=== PATIENT | female | born 1990 | race Caucasian/White ===

== ENCOUNTER 2019-03-11 08:42 | Outpatient (CLI) | payer OTHER ==
--- NOTE | 2019-03-11 23:20 | MRI Report ---
Reason: PAIN IN RT KNEE Procedure Date: 03/11/2019 Accession Number: [id number] / [id number] Procedure: MRI - Knee RT W/O CPT Code: Final Report FULL RESULT: EXAM: RIGHT KNEE MRI WITHOUT CONTRAST. EXAM DATE: 03/11/2019 09:34 AM. CLINICAL HISTORY: Pain in right knee. Injury with residual pain. COMPARISON: None. TECHNIQUE: Multiplanar, multisequence T1-weighted and fluid-sensitive sequences of the knee without contrast. Other: None. FINDINGS: Bones: Mild impaction fracture far posterior margin lateral tibial plateau with mild bone marrow edema. Subtle bone marrow edema central aspect lateral femoral condyle at site of focal cartilage loss. Mild contour deformity anterior aspect lateral femoral condyle without bone marrow edema. Mild bone marrow edema posterior aspect medial tibial plateau. Patchy T1 and fluid sensitive isointense signal in the medullary cavities distal femur and proximal tibia and fibula, consistent with residual red marrow. 0.6 cm likely enchondroma at the proximal fibula. Articular Cartilage: 0.5 x 0.4 cm focus of deep partial to full thickness cartilage loss central aspect lateral femoral condyle. Shallow irregularity at the patellofemoral joint with possible subtle fissure/tear medial patellar facet. Medial Meniscus: Diminutive appearance and fluid sensitive hyperintense signal at the posterior root. Lateral Meniscus: Deep radial tear posterior horn and root with triangular shaped flipped fragment extending 1.3 cm into the posterior intercondylar notch. Cruciate Ligaments: Moderate thickening and edema of the anterior cruciate ligament with distortion throughout the majority of the central substance. Some peripheral fibers appear intact. Posterior cruciate ligament intact. Collateral Ligaments: The medial collateral and lateral collateral ligamentous structures are intact. Tendons: The quadriceps, patellar, semimembranosus, and popliteus tendons are unremarkable. Musculature: No fatty atrophy. Minimal edema in the popliteus and soleus muscles. Other: Large joint effusion with synovitis. No popliteal cyst. No loose bodies. The medial and lateral retinacula are intact. Subcutaneous soft tissues and anterior fat-pads unremarkable. IMPRESSION: 1. High-grade partial-thickness tear anterior cruciate ligament. 2. Deep radial tear posterior horn and root lateral meniscus with flipped fragment. 3. Volume averaging artifact versus partial thickness tear posterior root medial meniscus. 4. Mild impaction fractures lateral tibial plateau and to a lesser extent medial tibial plateau. 0.5 cm focus of deep partial to full-thickness cartilage loss at the lateral femoral condyle. 5. Large joint effusion with synovitis. RADIA
== END 2019-03-11 08:43 | disposition home or self-care (01) ==
LOC: DI 08:42
PROVIDERS: ATTEND General Practice
DX: S83.511A Sprain of anterior cruciate ligament of right knee, initial encounter (principal); S83.281A Other tear of lateral meniscus, current injury, right knee, initial encounter; S82.141A Displaced bicondylar fracture of right tibia, initial encounter for closed fracture; M25.461 Effusion, right knee; M65.9 Synovitis and tenosynovitis, unspecified

== ENCOUNTER 2019-04-21 11:05 | Day surgery (SDC) | payer OTHER ==
[2019-04-21] MEDS ORDERED: LACTATED RINGERS 1,000 ML IV ONE (11:12)
[2019-04-21] MEDS ORDERED: CEFAZOLIN SODIUM IN 0.9 % NACL 2 GM/100 ML BAG IV ONE (11:16)
--- NOTE | 2019-04-21 11:17 | ANESTHESIA ---
Pre-Anesthesia VS, & Labs - Diagnosis R ACL tear, medial and lateral meniscus tears - Procedure R AACL reconstruction, possible meniscus root repairs Height 5 ft 3 in Weight (kg) 74.84 kg - NPO >8 hours - Is Patient ?: No - Lab Results Lab results reviewed: Yes Home Medications and Allergies Home Medications: Ambulatory Orders Vitamin B Complex 1 each PO 04/01/19 Vitamin B Complex 1 each PO 04/01/19 Allergies/Adverse Reactions: Allergies Allergy/AdvReac Type Severity Reaction Status Date / Time No Known Drug Allergies Allergy Verified 04/01/19 14:30 Anes History & Medical History - Anesthetic History Anesthesia Complications: reports: No previous complications Family history of Anesthesia Complications: Denies Family history of Malignant Hyperthermia: Denies - Medical History Pulmonary: reports: None Gastrointestinal: reports: None Urinary: reports: None Musculoskeletal: reports: Other Endocrine/Autoimmune: reports: None Skin: reports: None - Surgical History Eyes Ears Nose Throat (EENT): Tonsil/Adenoidectomy Exam General: Alert, Oriented x3, Cooperative Dental: WNL Mouth Openin Fingerbreadth Neck Mobility: Normal Mallampati classification: II Thyromental Distance: 4-6 cm Respiratory: Lungs clear, Normal breath sounds, No respiratory distress Cardiovascular: Regular rate Neurological: Normal speech Mental/Cognitive Status: Alert/Oriented X3, Normal for patient Cognitive Status: Within normal limits Plan Anesthesia Type: General, Femoral Block Regional Block: Per Surgeon's request for Post Op pain control Consent for Procedure(s) Verified and Reviewed: Yes Code Status: Attempt Resuscitation ASA classification: 1-Healthy patient Is this case an emergency?: No
[2019-04-21 11:20] LABS: HCG UR QUAL NEGATIVE
[2019-04-21] MEDS ORDERED: BUPIVACAINE 0.25% PF 30 ML VIAL SUBQ ONE ×2 (11:25)
[2019-04-21] MEDS ORDERED: EPINEPHrine 1 MG/ML AMP IVP ONE (11:25)
[2019-04-21] MEDS ORDERED: LIDOCAINE-MPF 2% 5 ML VIAL IM ONE (11:51)
[2019-04-21] MEDS ORDERED: HYDROmorphone 1 MG/ML CARPUJECT IVP ONE (11:51)
[2019-04-21] MEDS ORDERED: KETOROLAC 30 MG/ML VIAL IVP ONE (11:51)
[2019-04-21] MEDS ORDERED: fentaNYL 100 MCG/2 ML VIAL IVP ONE (11:51)
[2019-04-21] MEDS ORDERED: MIDAZOLAM 2 MG/2 ML VIAL IVP ONE (11:51)
[2019-04-21] MEDS ORDERED: PROPOFOL 200 MG/20 ML VIAL IVP ONE (11:51)
[2019-04-21] MEDS ORDERED: ONDANSETRON 4 MG/2 ML VIAL IVP ONE (11:51)
[2019-04-21] MEDS ORDERED: ONDANSETRON 4 MG/2 ML VIAL IVP PRN (15:40)
[2019-04-21] MEDS ORDERED: oxyCODONE 5 MG TABLET PO PRN (15:40)
[2019-04-21] MEDS ORDERED: oxyCODONE 5 MG TABLET ONE (15:57)
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
[2019-04-21] MEDS ORDERED: ONDANSETRON 4 MG/2 ML VIAL ONE (16:01)
[2019-04-21 16:34] VITALS: BP 109/70
== END 2019-04-21 11:06 | disposition home or self-care (01) ==
LOC: SDS 11:05
PROVIDERS: ATTEND Orthopaedic Surgery
DX: S83.511A Sprain of anterior cruciate ligament of right knee, initial encounter (principal); S83.281A Other tear of lateral meniscus, current injury, right knee, initial encounter
CPT/HCPCS: 81025

== ENCOUNTER 2022-03-08 08:00 | Outpatient (CLI) | payer OTHER ==
[2022-03-08 13:02] LABS: BILIRUBIN,URINE NEGATIVE (NEGATIVE); GLUCOSE, URINE (UA) NEGATIVE (NEGATIVE); KETONES,URINE (UA) NEGATIVE (NEGATIVE); LEUKOCYTE ESTERASE, URINE NEGATIVE (NEGATIVE); NITRITE,URINE NEGATIVE (NEGATIVE); OCCULT BLOOD,URINE NEGATIVE (NEGATIVE); PROTEIN,URINE NEGATIVE (NEGATIVE); UROBILINOGEN,URINE 0.2 (NORMAL) E.U./dL (NORMAL)
[2022-03-08 13:16] LABS: BACTERIA,URINE Few /HPF (None Seen); CLARITY,URINE CLEAR (CLEAR); CRYSTALS,URINE 11-25 Ca Oxalate /LPF; RBC,URINE 0-5 /HPF (0-5); SQUAMOUS EPITHELIAL CELL,UR FEW Squamous (<= Few); WBC,URINE 0-3 /HPF (0-5)
== END 2022-03-08 23:59 | disposition home or self-care (01) ==
LOC: LAB.WC 08:00
PROVIDERS: ATTEND Obstetrics & Gynecology
DX: Z34.90 Encounter for supervision of normal pregnancy, unspecified, unspecified trimester (principal)
CPT/HCPCS: 81001; 87086

== ENCOUNTER 2022-03-22 14:31 | Outpatient (CLI) | payer OTHER ==
[2022-03-22 14:55] LABS: BASOPHILS % (AUTO) 0.2 %; EOSINOPHILS # (AUTO) 0.1 10^3/uL (0.0-0.7); EOSINOPHILS % (AUTO) 1.1 %; HCT - HEMATOCRIT 39.7 % (37.0-47.0); HGB - HEMOGLOBIN 13.4 g/dL (12.0-16.0); LYMPHOCYTES # (AUTO) 1.5 10^3/uL (1.5-3.5); LYMPHOCYTES % (AUTO) 18.1 %; MEAN CORPUSCULAR HGB CONC 33.8 g/dL (32.0-36.0); MEAN PLATELET VOLUME 11.1 fL (7.9-10.8); MONOCYTES # (AUTO) 0.6 10^3/uL (0.0-1.0); MONOCYTES % (AUTO) 7.5 %; NEUTROPHILS # (AUTO) 5.8 10^3/uL (1.5-6.6); NEUTROPHILS % (AUTO) 72.7 %; PLT - PLATELET COUNT 316 10^3/uL (130-450); RED BLOOD COUNT 4.46 10^6/uL (4.20-5.40); RED CELL DISTRIBUTION WIDTH 12.8 % (12.0-15.0)
[2022-03-23 04:09] LABS: HBsAG SCREEN Negative (Negative); HCV AB <0.1 s/co ratio (0.0-0.9)
[2022-03-23 07:09] LABS: RPR Non Reactive (Non Reactive); VARICELLA-ZOSTER AB IGG 1041 index (Immune >165)
[2022-03-24 01:07] LABS: HIV SCREEN 4TH GENERATION Non Reactive (Non Reactive)
== END 2022-03-22 14:32 | disposition home or self-care (01) ==
LOC: LAB 14:31
PROVIDERS: ATTEND Obstetrics & Gynecology
DX: Z34.90 Encounter for supervision of normal pregnancy, unspecified, unspecified trimester (principal)
CPT/HCPCS: 36415; 85025; 86592; 86762; 86787; 86803; 86850; 86900; 86901; 87340; 87389

== ENCOUNTER 2022-03-27 16:49 | Outpatient (CLI) | payer OTHER ==
--- NOTE | 2022-03-27 18:55 | Ultrasound Report ---
PROCEDURE: OB First Trimester w/TV INDICATIONS: POSITIVE TEST OUTSIDE/PRIOR DATING DATA: Last menstrual period (LMP): 01/15/2022. LMP-based estimated date of delivery (IZABELLA): 10/22/2022. First dating scan (date and location): 03/27/2022, current study. Estimated date of delivery (IZABELLA) from first dating scan: 10/21/2022. TECHNIQUE: Real-time scanning was performed of the fetus and maternal pelvic organs, with image documentation. Endovaginal scanning was also performed to better visualize the fetus and maternal ovaries. COMPARISON: None FINDINGS: Embryo: Single intrauterine gestation with an average crown-rump length of 3.38 cm. This corresponds to a 10 week 2 day gestation. There is detectable heart rate and the fetus at a rate of 162 bpm. An unfused amnion is present. Normal yolk sac is seen. Maternal organs: The uterus is retroverted. There is an implantation bleed measuring 5.0 x 1.3 x 3.6 cm along the right aspect of the sac encompassing less than one third of the sac circumference.. The cervix is closed. The right ovary contains a follicle measuring 2.8 cm. The left ovary contains a com plex peripherally vascular follicle, likely corpus luteum measuring 2.1 cm. Measurement variability in dating: +/- 4 weeks by LMP, +/- 7 days by mean sac diameter (use before 6 weeks gestation if crown-rump length not able to be measured), +/- 5 days by crown-rump length (6-12 weeks gestation). IMPRESSION: 1. Viable intrauterine at 10 weeks 2 days. 2. Gestational hemorrhage present, but closed cervix. This may be an implantation bleed. Reviewed by: Iqra Jesus MD on 03/27/2022 5:54 PM AKST Approved by: Iqra Jesus MD on 03/27/2022 5:54 PM AKST Station ID: [id number]
== END 2022-03-27 16:50 | disposition home or self-care (01) ==
LOC: DI 16:49
PROVIDERS: ATTEND Obstetrics & Gynecology
DX: O20.8 Other hemorrhage in early pregnancy (principal); Z3A.10 10 weeks gestation of pregnancy

== ENCOUNTER 2022-04-05 10:45 | Outpatient (CLI) | payer OTHER ==
[2022-04-06 23:06] LABS: CHLAMYDIA TRACHOMATIS DNA NEGATIVE (NEGATIVE); NEISSERIA GONORRHOEAE DNA NEGATIVE (NEGATIVE); TRICHOMONAS VAGINALIS DNA NEGATIVE (NEGATIVE)
== END 2022-04-05 23:59 | disposition home or self-care (01) ==
LOC: LAB.N 10:45
PROVIDERS: ATTEND Obstetrics & Gynecology
DX: Z11.3 Encounter for screening for infections with a predominantly sexual mode of transmission (principal)
CPT/HCPCS: 87491; 87591; 87661

== ENCOUNTER 2022-04-25 13:28 | Outpatient (CLI) | payer OTHER | END 2022-04-25 13:29 | disposition home or self-care (01) | LOC: LAB 13:28 | PROVIDERS: ATTEND Obstetrics & Gynecology | DX: Z53.9 Procedure and treatment not carried out, unspecified reason (principal) ==

== ENCOUNTER 2022-06-07 19:13 | Outpatient (CLI) | payer OTHER ==
--- NOTE | 2022-06-08 15:40 | Ultrasound Report ---
PROCEDURE: OB Detailed Eval INDICATIONS: SUPERVISION OF OUTSIDE/PRIOR DATING DATA: Last menstrual period (LMP): 01/15/2022. LMP-based estimated date of delivery (IZABELLA): 10/22/2022. First dating scan (date and location): 03/27/2022. Estimated date of delivery (IZABELLA) from first dating scan: 10/21/2022. The below data below was generated using the ultrasound IZABELLA of 10/21/2022 TECHNIQUE: Real-time scanning was performed of the fetus, with image documentation and biometric measurements. COMPARISON: OB ultrasound 03/27/2022 FINDINGS: General: A single living intrauterine gestation is present. Presentation: Vertex Placenta: Placental position is anterior, without previa. Amniotic fluid index: 16.2 cm, within normal limits for gestational age. Largest pocket measures 4 .5 cm heart rate: 157 beats per minute. Maternal cervical canal: 5.5 cm long; normal length is 2.5 cm or more. Small cyst is noted in the c ervical canal measuring 8 mm. Miscellaneous: Bilateral ovarian cysts again noted. biometrics: Biparietal diameter: 4.8 cm 20 weeks 4 days Head circumference: 18.5 cm 20 weeks 6 days Abdominal circumference: 16.0 cm 21 weeks 1 day Femur length: 3.5 cm 21 weeks 0 days Estimated gestational age from initial scan: 20 weeks 4 days Composite gestational age from present scan: 20 weeks 6 days Estimated weight and percentile: 394 g 71st percentile Measurement variability in biometric dating: +/- 10 days from 12-20 weeks gestation, +/- 2 weeks from 20-30 weeks gestation, +/- 3 weeks at 30 weeks gestation or later. Anatomic survey: Neuro: Ventricles are normal at less than 10 mm. Cisterna magna is normal at 3-11 mm. Cerebellum i s normal in size and morphology. Nuchal skin fold: Normal at less than 6 mm between 14 and 20 weeks gestational age. Face: Nose and lips, facial profile are normal. Spine: No evidence for spina bifida. Heart: 4-chambered heart is present, with normal ventricular outflow tracts. Diaphragm: Diaphragm is intact. Stomach: Left-sided stomach is present. Kidneys: No hydronephrosis. Normal is less than 5 mm in 2nd trimester, less than 7 mm in 3rd trimester. Cord: 3 vessel cord has orthotopic insertion. Bladder: Normal in size. Extremities: All 4 extremities are visualized. IMPRESSION: Single live intrauterine with ultrasound gestational age of 20 weeks 6 days. Anatomy is within normal limits. weight is at the 71st percentile. Reviewed by: Estrella Bailon MD on 06/08/2022 3:38 PM PDT Approved by: Estrella Bailon MD on 06/08/2022 3:38 PM PDT Station ID: [id number]
== END 2022-06-07 19:14 | disposition home or self-care (01) ==
LOC: DI 19:13
PROVIDERS: ATTEND Obstetrics & Gynecology
DX: Z34.92 Encounter for supervision of normal pregnancy, unspecified, second trimester (principal); Z36.89 Encounter for other specified antenatal screening

== ENCOUNTER 2022-07-20 09:02 | Outpatient (CLI) | payer OTHER ==
[2022-07-20 10:29] LABS: MEAN CORPUSCULAR HEMOGLOBIN 30.2 pg (27.0-31.0); MEAN CORPUSCULAR HGB CONC 32.4 g/dL (32.0-36.0); MEAN PLATELET VOLUME 11.3 fL (7.9-10.8); RED BLOOD COUNT 3.98 10^6/uL (4.20-5.40); WHITE BLOOD COUNT 9.1 x10^3/uL (4.8-10.8)
== END 2022-07-20 09:03 | disposition home or self-care (01) ==
LOC: LAB 09:02
PROVIDERS: ATTEND Obstetrics & Gynecology
DX: Z34.90 Encounter for supervision of normal pregnancy, unspecified, unspecified trimester (principal)
CPT/HCPCS: 36415; 82950; 85027

== ENCOUNTER 2022-08-13 19:28 | Outpatient (CLI) | payer OTHER ==
--- NOTE | 2022-08-14 11:54 | Ultrasound Report ---
PROCEDURE: OB F/U or Repeat INDICATIONS: OBESITY OUTSIDE/PRIOR DATING DATA: Last menstrual period (LMP): 01/15/2022. LMP-based estimated date of delivery (IZABELLA): 10/22/2022. First dating scan (date and location): 03/27/2022. Estimated date of delivery (IZABELLA) from first dating scan: 10/21/2022. The below data below was generated using the ultrasound IZABELLA of 10/21/2022 TECHNIQUE: Real-time scanning was performed of the fetus, with image documentation and biometric measurements. Endovaginal scanning: Not performed COMPARISON: OB ultrasound 06/07/2022 FINDINGS: General: A single living intrauterine gestation is present. Presentation: Vertex Placenta: Placental position is anterior, without previa. Amniotic fluid index: 15.7 cm, normal for gestational age. Single deepest vertical fluid pocket is 5.2 cm. heart rate: 167 beats per minute. Maternal cervical canal: 4.9 cm long; normal length is 2.5 cm or more. biometrics: Biparietal diameter: 8.2 cm, 32 weeks 6 days Head circumference: 30.1 cm, 33 weeks 3 days Abdominal circumference: 26.6 cm, 30 weeks 5 days Femur length: 5.8 cm, 30 weeks 3 days Estimated gestational age from initial scan: 30 weeks 1 day. Composite gestational age from present scan: 31 weeks 6 days Estimated weight and percentile: 1689 g, 70th percentile Measurement variability in biometric dating: +/- 10 days from 12-20 weeks gestation, +/- 2 weeks from 20-30 weeks gestation, +/- 3 weeks at 30 weeks gestation or more. Other: Not applicable. IMPRESSION: 1.Single live intrauterine . 2.Estimated weight is normal at the 70th percentile for gestational age. Of note, biparietal di ameter is at the 97th percentile and head circumference is at the 94th percentile for gestational age . 3.Amniotic fluid index is normal at 15.7 cm. Deepest fluid pocket is 5.2 cm. Reviewed by: John Saldaña MD on 08/14/2022 11:53 AM PDT Approved by: John Saldaña MD on 08/14/2022 11:53 AM PDT Station ID: [id number]
== END 2022-08-13 19:29 | disposition home or self-care (01) ==
LOC: DI 19:28
PROVIDERS: ATTEND Obstetrics & Gynecology
DX: O99.213 Obesity complicating pregnancy, third trimester (principal); Z3A.31 31 weeks gestation of pregnancy

== ENCOUNTER 2022-08-30 08:00 | Outpatient (CLI) | payer OTHER ==
[2022-08-30 14:34] LABS: BILIRUBIN,URINE NEGATIVE (NEGATIVE); GLUCOSE, URINE (UA) NEGATIVE (NEGATIVE); KETONES,URINE (UA) NEGATIVE (NEGATIVE); LEUKOCYTE ESTERASE, URINE NEGATIVE (NEGATIVE); NITRITE,URINE NEGATIVE (NEGATIVE); OCCULT BLOOD,URINE NEGATIVE (NEGATIVE); PH,URINE 6.5 PH (5.0-7.5); PROTEIN,URINE NEGATIVE (NEGATIVE); UROBILINOGEN,URINE 0.2 (NORMAL) E.U./dL (NORMAL)
[2022-08-30 14:42] LABS: BACTERIA,URINE Rare /HPF (None Seen); CLARITY,URINE CLEAR (CLEAR); RBC,URINE 0-5 /HPF (0-5); SQUAMOUS EPITHELIAL CELL,UR RARE Squamous (<= Few); WBC,URINE 0-3 /HPF (0-5)
== END 2022-08-30 23:59 | disposition home or self-care (01) ==
LOC: LAB.WC 08:00
PROVIDERS: ATTEND Nurse Practitioner
DX: R10.2 Pelvic and perineal pain (principal)
CPT/HCPCS: 81001; 87086

== ENCOUNTER 2022-08-31 11:50 | Outpatient (CLI) | payer OTHER ==
[2022-08-31 12:20] VITALS: BP 123/62
--- NOTE | 2022-09-01 00:12 | PROVIDER PROGRESS NOTE ---
- HPI Chief Complaint: Labor Current : Current EDU 10/22/22 Gestation 32 Weeks and 4 Days 1 Para 0 Vital Signs Temperature 98.1 F 08/31/22 12:04 Heart Rate 68 08/31/22 12:04 Respiratory Rate 16 08/31/22 12:04 Blood Pressure 123/62 08/31/22 12:04 Temperature 98.1 F 08/31/22 12:16 Heart Rate 68 08/31/22 12:16 Respiratory Rate 16 08/31/22 12:16 Blood Pressure 123/62 08/31/22 12:16 O2 Saturation If not protocol: Oxygen Flow, liters/minute - Procedures OB Procedure Performed: NST Diagnosis/Indication for NST: labor NST Procedure: NST Procedure Start Date 08/31/22 Start Time 12:00 Stop Time 12:36 Vibroacoustic Stimulation Used No Patient States Movement Yes EFM: 140s, moderate variability, positive 15x15 accelerations, no decelerations [place]: irregular contractions NST reactive/Cat 1 Performed and read 08/31/22 Service Date of procedure: 08/31/22 - Plan Plan: 32yo at 32.4w presents with occasional contractions. Contractions started yesterday then stopped, then started again this morning. She is going downtown this weekend and wants to make sure everything is ok. Denies leaking fluid or bleeding. Good movement. care at and uncomplicated. VSS GEN: NAD CV: Regular rate Resp: Breathing unlabored Abd: soft, nt Ext: nt SVE: closed/th/high FFN collected prior to SVE FFN negative 32yo at 32.4w, false labor - NST reactive - labor precautions - Follow up at scheduled appt
== END 2022-08-31 14:05 | disposition home or self-care (01) ==
LOC: WFO 11:50 → FBP 11:51 → WFO 14:05
PROVIDERS: ATTEND Obstetrics & Gynecology
DX: O47.03 False labor before 37 completed weeks of gestation, third trimester (principal); Z3A.32 32 weeks gestation of pregnancy
CPT/HCPCS: 59025; 82731; 99213

== ENCOUNTER 2022-09-28 08:00 | Outpatient (CLI) | payer OTHER | END 2022-09-28 23:59 | disposition home or self-care (01) | LOC: LAB.WC 08:00 | PROVIDERS: ATTEND Nurse Practitioner | DX: Z36.85 Encounter for antenatal screening for Streptococcus B (principal) | CPT/HCPCS: 87797 ==

== ENCOUNTER 2022-10-21 16:59 | Outpatient (CLI) | payer OTHER ==
[2022-10-21 17:19] VITALS: BP 119/69
--- NOTE | 2022-10-21 18:10 | PROVIDER PROGRESS NOTE ---
- HPI Chief Complaint: Decreased movement Current : Current EDU 10/21/22 Gestation 40 Weeks and 0 Days 1 Para 0 Vital Signs Temperature 98.1 F 10/21/22 17:10 Heart Rate 89 10/21/22 17:10 Respiratory Rate 18 10/21/22 17:10 Blood Pressure 119/69 10/21/22 17:10 Temperature 98.1 F 10/21/22 17:10 Heart Rate 89 10/21/22 17:10 Respiratory Rate 18 10/21/22 17:10 Blood Pressure 119/69 10/21/22 17:10 O2 Saturation If not protocol: Oxygen Flow, liters/minute - Procedures OB Procedure Performed: NST Diagnosis/Indication for NST: Decreased movement NST Procedure: NST Procedure Start Date 10/21/22 Start Time 17:07 Stop Time 17:37 Vibroacoustic Stimulation Used No Patient States Movement Yes: Decreased Service Date of procedure: 10/21/22 (read 10/21/22) - Plan Plan: Patient is a 32-year-old G1, P0 at 39 weeks 6 days gestation presenting to triage for decreased movement. Patient has been doing kick counts at home and had adequate number of movements, but has checked several times throughout the day because it felt like less. She denies leaking or bleeding she denies headache, right upper quadrant pain, changes in vision. No contractions Physical Exam Constitutional: alert, no acute distress, well hydrated, well developed, well nourished, appropriate dress. Cardiovascular: Regular rate and rhythm. Respiratory: no respiratory distress. Abdomen: nondistended, nontender, no guarding. Psych: affect and mood appropriate, normal interaction, good eye contact. FHT: 130 beats per baseline, moderate variability, accelerations present, no decelerations. Reactive NST [place]: Quiescent Bedside ultrasound: JESSIE 7.4 cm. Normal modified BPP Assessment and plan 32-year-old at 39 weeks 6 days gestation with decreased movement 1. Decreased movement -Reactive NST and normal modified BPP -As her due date is tomorrow, baby is term and we are likely gaining little from waiting. Offered induction of labor, but as baby is generally moving well and she was being overly cautious, she declines today. She will discuss this with her provider. -Discussed kick counts and labor precautions. 2. 39 weeks gestation -Follow-up with her outpatient provider
== END 2022-10-21 17:55 | disposition home or self-care (01) ==
LOC: WFO 16:59 → FBP 17:02 → WFO 17:55
PROVIDERS: ATTEND Obstetrics & Gynecology
DX: O36.8130 Decreased fetal movements, third trimester, not applicable or unspecified (principal); Z3A.39 39 weeks gestation of pregnancy
CPT/HCPCS: 59025; 99214

== ENCOUNTER 2022-10-25 05:01 | Inpatient (IN) | payer OTHER ==
[2022-10-25 06:02] LABS: RUPTURE OF MEMBRANES PLUS NEGATIVE (NEGATIVE)
[2022-10-25] MEDS ORDERED: OXYTOCIN 10 UNIT/ML VIAL IM PRN (07:26)
[2022-10-25] MEDS ORDERED: miSOPROStoL 200 MCG TABLET BC PRN (07:26)
[2022-10-25] MEDS ORDERED: lidocaine 1% 20 ML MDV ID PRN (07:26)
[2022-10-25] MEDS ORDERED: METHYLERGONOVINE 0.2 MG/ML VIAL IM PRN (07:26)
[2022-10-25] MEDS ORDERED: SODIUM CHLORIDE FLUSH 0.9% 10 ML SYRINGE IVP PRN (07:26)
[2022-10-25] MEDS ORDERED: CARBOPROST TROMETHAMINE 250 MCG/ML AMP IM PRN (07:26)
[2022-10-25] MEDS ORDERED: OXYTOCIN/SODIUM CHLORIDE 500 ML IV PRN (07:26)
[2022-10-25] MEDS ORDERED: LACTATED RINGERS 1,000 ML IV PRN (07:26)
[2022-10-25] MEDS ORDERED: TRANEXAMIC ACID IN NACL 1,000 MG/100 ML BAG IV PRN (07:26)
[2022-10-25] MEDS ORDERED: miSOPROStoL 200 MCG TABLET PR PRN (07:26)
[2022-10-25] MEDS ORDERED: fentaNYL 100 MCG/2 ML VIAL IVP PRN (07:26)
--- NOTE | 2022-10-25 07:34 | HISTORY & PHYSICAL EXAMINATION ---
Admit History - Visit Reason Visit Reason: Membranes rupture - : 1 Parity: 0 Care: positive: [facility] Risk/History: positive: Labor induction Complications This : positive: None - Mother's Labs Mother's Blood Type: positive: A Mother's RH: positive: Positive GBS: positive: Group B Step Negative Rubella Status: positive: Immune - Other Maternal History Other Maternal History: Med: BMI 42 currently Surg: Welcome teeth, right knee Fam: colon cancer father, DM Social: AD, , denies joy - HPI Diagnosis/Indication for NST: Other (presented for leaking fluid, r/o labor) Vital Signs Temperature 97.7 F 10/25/22 05:20 Heart Rate 91 10/25/22 05:20 Respiratory Rate 18 10/25/22 05:20 Blood Pressure 106/85 H 10/25/22 05:20 Temperature 97.7 F 10/25/22 05:20 Heart Rate 91 10/25/22 05:20 Respiratory Rate 18 10/25/22 05:20 Blood Pressure 106/85 H 10/25/22 05:20 O2 Saturation If not protocol: Oxygen Flow, liters/minute - NST Procedure NST Procedure Start Time 17:07 Stop Time 17:37 EFM: 160s, moderate variability, positive 15x15 accelerations, one audible deceleration ~2 minute to 90s [place]: contractions irregular Cat 2 with one deceleration. Discussed with patient. Scheduled for IOL tomorrow, offered admission today due to deceleration and she would like to stay for admission and induction now. Meds/Allgy - Home Medications Home Medications: Ambulatory Orders Medication Instructions Recorded Confirmed Vitamin B Complex 1 each PO 04/01/19 - Allergies Allergies/Adverse Reactions: Allergies Allergy/AdvReac Type Severity Reaction Status Date / Time No Known Drug Allergies Allergy Verified 04/01/19 14:30 Review of Systems - All Other Systems All Other Systems: reports: Reviewed and negative Physical - Abdominal Exam Vital Signs: Temp Pulse Resp BP Pulse Ox O2 Flow Rate 97.7 F 91 18 106/85 H 10/25/22 05:20 10/25/22 05:20 10/25/22 05:20 10/25/22 05:20 - Monitoring Heart Rate Baseline: 160 Strip Review: positive: Category II - Presentation Presentation: positive: Vertex (placenta anterior, EFW 3600g) - Vaginal Exam Membranes: positive: Membranes intact (ROM PLUS neg) Dilation (in cm): 1 Effacement (%): 50 Station: positive: -3 Cervical Position: positive: Midposition Plan for Labor - Plan For Labor I expect patient to be DC'd or transferred within 96 hours.: Yes Plan for Labor: 32yo at 40.3w by LMP consistent with 10w US admitted for IOL for post- dates/Cat 2 tracing - Decision for induction for audible 2m deceleration to 90s. Scheduled for tomorrow, discussed with patient and she is opting to stay now. - complicated by obesity - CBC, TS - Misoprostol 50mcg q4-6h BC
[2022-10-25] MEDS: miSOPROStoL 100 MCG TABLET BC SCH ×2 (08:29→12:49)
[2022-10-25 08:34] LABS: BASOPHILS # (AUTO) 0.1 10^3/uL (0.0-0.1); BASOPHILS % (AUTO) 0.5 %; EOSINOPHILS # (AUTO) 0.1 10^3/uL (0.0-0.7); EOSINOPHILS % (AUTO) 0.9 %; HCT - HEMATOCRIT 35.9 % (37.0-47.0); HGB - HEMOGLOBIN 11.9 g/dL (12.0-16.0); LYMPHOCYTES # (AUTO) 2.2 10^3/uL (1.5-3.5); LYMPHOCYTES % (AUTO) 17.1 %; MEAN CORPUSCULAR HEMOGLOBIN 29.5 pg (27.0-31.0); MEAN CORPUSCULAR HGB CONC 33.1 g/dL (32.0-36.0); MEAN CORPUSCULAR VOLUME 89.1 fL (81.0-99.0); MEAN PLATELET VOLUME 12.5 fL (7.9-10.8); MONOCYTES # (AUTO) 0.9 10^3/uL (0.0-1.0); MONOCYTES % (AUTO) 6.8 %; NEUTROPHILS # (AUTO) 9.5 10^3/uL (1.5-6.6); NEUTROPHILS % (AUTO) 73.5 %; PLT - PLATELET COUNT 241 10^3/uL (130-450); RED BLOOD COUNT 4.03 10^6/uL (4.20-5.40); RED CELL DISTRIBUTION WIDTH 14.4 % (12.0-15.0)
[2022-10-25] MEDS: OXYTOCIN/SODIUM CHLORIDE 500 ML IV SCH (09:22)
[2022-10-25] MEDS: LACTATED RINGERS 1,000 ML IV SCH (09:22)
[2022-10-25] MEDS: SODIUM CHLORIDE FLUSH 0.9% 10 ML SYRINGE IVP SCH (09:22)
--- NOTE | 2022-10-25 09:56 | OPERATIVE REPORT ---
Operative Report - General Admit Date: 10/25/22 Procedure Date: 10/25/22 Planned Procedure: Repeat section, bilateral salpingectomy Pre-Op Diagnosis: Prior CDx1, desires RCD, multiparity, desires sterilization Procedure Performed: Repeat section, bilateral salpingectomy Post Op Diagnosis: Prior CDx1, desires RCD, multiparity, desires sterilization - Procedure Note Primary Surgeon: Jayla Valdes DO Secondary Surgeon: Breanna Ramsey NP; assistance required for retraction, safe completion Anesthesia Provider: Tessa Vargas CRNA Anesthesia Technique: Spinal Pathology: None Placenta discarded Cord blood collected Estimated Blood Loss (mL): 800 Indications: Prior CDx1, desires RCD, multiparity, desires sterilization Findings: Normal appearing uterus, tubes, ovaries Minimal scar tissue Complications: None - Other Other Information/Narrative: Under spinal anaesthetic with a Arnett catheter inserted, the patient was prepped and draped in the usual sterile fashion in the supine position with a leftward tilt. A Pfannensteil incision was made through the patients previous incision. The incision was carried down to the fascia with sharp dissection and cautery. The fascia was incised transversely and dissected off the rectus muscle using sharp dissection. Electrocautery was used for hemostasis. The peritoneum was opened taking care not to injure the bladder. The vesicouterine peritoneum was dissected off the lower uterine segment. The lower segment was assessed and a l ow transverse incision was made. The uterine incision was extended bluntly. The fetus was presenting as a vertex. Head brought to incision but did not deliver initially. Kiwi vacuum applied to flexion point to help guide vertex, head delivered then easily. No detachments. The rest of the body followed easily. After one minute of delayed cord clamping, the cord was clamped twice and cut and the baby transferred to the warmer, awaiting the pediatric staff. Cord blood collected. The placenta was then delivered with assistance. The uterus was explored and was empty of all tissue. The uterus was exteriorized for better visualization. The uterine incision was then closed in two layers with 0- Monocryl suture. The first layer was locking and the second was imbricating. Tubes and ovaries were examined and appeared normal. Attention then turned to bilateral salpingectomy. Tubes grasped with small Ligasure and this was used to transect tubes along mesosalpinx. This was repeated on left side. Hemostasis noted. The fascia was closed with 0-Vicryl in a running unlocked fashion. Subcutaneous layer reapproximated with 3-0 chromic. The skin was then reapproximated with 3-0 monocryl subcuticular suture. At the end of the procedure all sponges, instruments, and sharps were counted and correct. Estimated blood loss was 800cc. Transferred to PACU in stable condition.
[2022-10-25] MEDS: miSOPROStoL 100 MCG TABLET VG PRN ×3 (12:50→22:39)
--- NOTE | 2022-10-25 16:57 | PROVIDER PROGRESS NOTE ---
Labor Progress Note - Uterine Monitoring Contraction Intensity: positive: Mild Uterine Resting Tone: positive: Soft - Monitoring Monitor Mode: positive: External ultrasound Heart Rate Variability: positive: Moderate (6-25 bmp) Accelerations: positive: Present, 15x15 Decelerations: positive: None Strip Review: positive: Category I (doing well, proceed with miso. met patient, reviewed L&D plans and anticipated course.)
[2022-10-26] MEDS: miSOPROStoL 100 MCG TABLET VG PRN (02:55)
[2022-10-26] MEDS: SODIUM CHLORIDE FLUSH 0.9% 10 ML SYRINGE IVP SCH ×4 (02:57→16:06)
[2022-10-26] MEDS ORDERED: ROPIVACAINE 0.2% 200 MG/100 ML BAG EP ONE (09:57)
[2022-10-26] MEDS: LACTATED RINGERS 1,000 ML IV SCH ×4 (10:20→15:22)
[2022-10-26] MEDS ORDERED: ePHEDrine 50 MG/ML VIAL IVP ONE (10:41)
[2022-10-26] MEDS ORDERED: NALOXONE 0.4 MG/ML VIAL IVP PRN (10:44)
[2022-10-26] MEDS ORDERED: METOCLOPRAMIDE 10 MG/2 ML VIAL IVP PRN (10:44)
[2022-10-26] MEDS ORDERED: NALBUPHINE 10 MG/ML AMP IVP PRN (10:44)
[2022-10-26] MEDS ORDERED: ONDANSETRON 4 MG/2 ML VIAL IVP PRN (10:44)
[2022-10-26] MEDS ORDERED: ePHEDrine 50 MG/ML VIAL IVP PRN (10:44)
[2022-10-26] MEDS ORDERED: ROPIVACAINE 0.2% 200 MG/100 ML BAG EP PRN (10:44)
[2022-10-26] MEDS ORDERED: diphenhydrAMINE INJ 50 MG/ML VIAL IVP PRN (10:44)
--- NOTE | 2022-10-26 10:53 | ANESTHESIA ---
Pre-Anesthesia VS, & Labs - Diagnosis labor induction - Procedure labor epidural Vital Signs: Temp Pulse Resp BP Pulse Ox O2 Flow Rate 36.4 C L 100 16 113/65 10/26/22 08:06 10/26/22 08:06 10/26/22 08:06 10/26/22 08:06 Height: 5 ft 3 in Weight (kg): 109.769 kg Body Mass Index: 42.8 BMI Classification: Morbidly Obese - NPO >8 hours - Is Patient ?: Yes - Lab Results Current Lab Results: Laboratory Tests 10/25/22 08:00: WBC 13.0 H, RBC 4.03 L, Hgb 11.9 L, Hct 35.9 L, MCV 89.1, MCH 29.5, MCHC 33.1, RDW 14.4, Plt Count 241, MPV 12.5 H, Neut # (Auto) 9.5 H, Lymph # (Auto) 2.2, Cook # (Auto) 0.9, Eos # (Auto) 0.1, Baso # (Auto) 0.1, Absolute N ucleated RBC 0.00, Nucleated RBC % 0.0 10/25/22 08:00: Blood Type A POSITIVE, Antibody Screen NEGATIVE Fish Bones: 10/25/22 08:00 Home Medications and Allergies Active Medications Carboprost Tromethamine (Carboprost Tromethamine 250 Mcg/Ml Amp) 250 mcg IM .ONCE PRN PRN Reason: Hemorrhage Diphenhydramine HCl (Diphenhydramine Inj 50 Mg/Ml Vial) 12.5 - 25 mg IVP Q6HR PRN PRN Reason: ITCHING Ephedrine Sulfate (Ephedrine 50 Mg/Ml Vial) 5 mg IVP Q5M PRN PRN Reason: For SBP<100;give until SBP>100 Fentanyl (Fentanyl 100 Mcg/2 Ml Vial) 50 mcg IVP Q1H PRN PRN Reason: Severe Pain (score 7-10) Lactated Ringer's (Lr) 500 mls @ 999 mls/hr IV PRN PRN PRN Reason: PER PHYSICIAN ORDER Oxytocin/Sodium Chloride (Pitocin/Sodium Chloride) 500 mls @ 999 mls/hr IV PRN PRN; Protocol PRN Reason: POST- HEMORR PREVENTION Tranexamic Acid (Tranexamic 1,000 Mg/100ml-Nacl) 1,000 mg in 100 mls @ 600 mls/hr IV Q30M PRN PRN Reason: EBL >1200mL and within 3hr Lactated Ringer's (Lr) 1,000 mls @ 125 mls/hr IV .Q8H [facility] Last Admin: 10/25/22 09:22 Dose: Not Given Oxytocin/Sodium Chloride (Pitocin/Sodium Chloride) 500 mls @ 2 mls/hr IV TITR JUAN; Protocol Last Admin: 10/25/22 09:22 Dose: Not Given Ropivacaine (Naropin 0.2%) 200 mg in 100 mls @ 0 mls/hr EP PRN PRN; Protocol PRN Reason: PAIN Lidocaine HCl (Lidocaine 1% 20 Ml Mdv) 20 ml ID .ONCE PRN PRN Reason: PERINEAL REPAIR Stop: 10/28/22 07:26 Methylergonovine Maleate (Methylergonovine 0.2 Mg/Ml Vial) 0.2 mg IM .ONCE PRN PRN Reason: Hemorrhage Metoclopramide HCl (Metoclopramide 10 Mg/2 Ml Vial) 10 mg IVP Q6HR PRN PRN Reason: Nausea / Vomiting Misoprostol (Misoprostol 200 Mcg Tablet) 600 mcg BC .ONCE PRN PRN Reason: Hemorrhage Misoprostol (Misoprostol 200 Mcg Tablet) 800 mcg ME .ONCE PRN PRN Reason: Hemorrhage Misoprostol (Misoprostol 100 Mcg Tablet) 25 mcg VG Q4HR PRN PRN Reason: Contractions Last Admin: 10/26/22 02:55 Dose: 25 mcg Nalbuphine HCl (Nalbuphine 10 Mg/Ml Amp) 2.5 - 5 mg IVP Q4H PRN PRN Reason: ITCHING Naloxone HCl (Naloxone 0.4 Mg/Ml Vial) 0.1 mg IVP Q2M PRN PRN Reason: RR<8 Ondansetron HCl (Ondansetron 4 Mg/2 Ml Vial) 4 mg IVP Q6HR PRN PRN Reason: Nausea / Vomiting Oxytocin (Oxytocin 10 Unit/Ml Vial) 10 unit IM .ONCE PRN PRN Reason: Step One if no IV access. Sodium Chloride (Sodium Chloride Flush 0.9% 10 Ml Syringe) 10 ml IVP PRN PRN PRN Reason: NEEDED PER PROVIDER ORDERS Sodium Chloride (Sodium Chloride Flush 0.9% 10 Ml Syringe) 10 ml IVP Q8H JUAN Last Admin: 10/26/22 02:57 Dose: 10 ml Vitamin B Complex 1 each PO 04/01/19 Allergies/Adverse Reactions: Allergies Allergy/AdvReac Type Severity Reaction Status Date / Time No Known Drug Allergies Allergy Verified 04/01/19 14:30 Anes History & Medical History - Anesthetic History Anesthesia Complications: reports: No previous complications - Medical History Cardiovascular: reports: None Pulmonary: reports: None Gastrointestinal: reports: None Urinary: reports: None Musculoskeletal: reports: Other Endocrine/Autoimmune: reports: None Skin: reports: None Smoking Status: Never smoker History of Cancer?: No - Surgical History Eyes Ears Nose Throat (EENT): reports: Tonsil/Adenoidectomy - Obstetrical History : 1 Parity: 0 Events: reports: Labor induction Complications: reports: None Exam General: Alert, Oriented x3 Dental: WNL Mallampati classification: II Thyromental Distance: greater than 6 cm Respiratory: Lungs clear Cardiovascular: Regular rate Plan Anesthesia Type: Epidural Consent for Procedure(s) Verified and Reviewed: Yes Code Status: Attempt Resuscitation ASA classification: 2-Mild systemic disease Is this case an emergency?: No
[2022-10-26] MEDS: OXYTOCIN/SODIUM CHLORIDE 500 ML IV SCH (11:20)
--- NOTE | 2022-10-26 17:20 | PROVIDER PROGRESS NOTE ---
Labor Progress Note - Uterine Monitoring Uterine Monitoring Mode: positive: External toco Contraction Frequency (min/apart): 2 Contraction Intensity: positive: Moderate Uterine Resting Tone: positive: Soft - Monitoring Monitor Mode: positive: External ultrasound Heart Rate Baseline: 120 Heart Rate Variability: positive: Moderate (6-25 bmp) Accelerations: positive: Present, 15x15 Decelerations: positive: None Strip Review: positive: Category I - Vaginal Exam Dilation (in cm): 6 Effacement (%): 100 Station: -1 Cervical Position: Anterior (AROM 1500, light meconium) - Labor Progress Note Labor Progress Note/Additional Text: 32yo at 40.4w admitted for IOL - 6cm, AROM 1500 light meconium - Comfortable with epidural - Continue Pitocin - Anticipate
[2022-10-26] MEDS ORDERED: LACTATED RINGERS 1,000 ML IV SCH (22:00)
--- NOTE | 2022-10-26 22:01 | DELIVERY NOTE ---
Delivery Note - Labor Labor: positive: Augmented by oxytocin - Delivery Method Delivery Method: positive: Vacuum assist - Cervical Ripening Method Cervical Ripening Method: positive: Misoprostil - Presentation Presentation: positive: Vertex, PASCUAL - left occiput anterior - Nuchal Cord Nuchal Cord: positive: None - Anesthetic Anesthetic Type: - Amniotic Fluid Description Amniotic Fluid Description: positive: Light meconium - Vacuum Use Indication for Vacuum Use: positive: Suspicion of immediate or potential compromise Type of Vacuum Cup: positive: Cup: Leger Type, Cup: Rigid Vacuum Extraction: positive: Successful Number of pop-offs: 0 - Episiotomy Type Episiotomy Type: positive: None - Laceration Laceration: positive: 2nd degree, Perineal, Vaginal - Suture Suture Type: positive: Vicryl Suture Size: positive: 3-0 - Delivery Outcome Delivery Outcome: positive: Livebirth - : positive: Placed in direct skin contact with mother, Stimulated, Warmed, [place] used sex: positive: Female - Cord Cord: positive: 3 vessels - Placenta Placenta: positive: Intact, Spontaneous - Estimated Blood Loss Estimated Blood Loss (in cc): 200 - Post Delivery Events Post Delivery Events: positive: No post delivery events - Delivery Comments (Free Text/Narrative) Delivery Comments (Free Text/Narrative): 10/100/+2. Maternal pushing with good efforts. Comfortable with epidural. FHR to 80s at +3 station after contractions. Discussed VAVD with patient, reviewed risks, and verbal consent obtained. Kiwi vacuum placed on flexion point. Suction applied before contraction. Two pulls with two contractions and delivery accomplished. No detachments. Vaccum applied for 3 minutes. Head delivered and shoulders and body followed with ease. Delayed cord clamping. Fundus firm. Vagina and perineum inspected- second degree vaginal/perineal laceration. Repaired with 3-0 Vicryl in usual fashion. Hemostasis. Family bonding at bedside. Apgars 9/9.
[2022-10-26] MEDS: ACETAMINOPHEN 500 MG TABLET PO SCH (22:22)
[2022-10-26] MEDS: SIMETHICONE CHEW 80 MG TABLET PO SCH (22:22)
[2022-10-26] MEDS: IBUPROFEN 800 MG TABLET PO SCH (22:23)
[2022-10-27] MEDS: IBUPROFEN 800 MG TABLET PO SCH ×4 (04:48→23:58)
[2022-10-27] MEDS: SIMETHICONE CHEW 80 MG TABLET PO SCH (06:29)
[2022-10-27] MEDS: ACETAMINOPHEN 500 MG TABLET PO SCH ×3 (06:29→23:57)
[2022-10-27] MEDS: WITCH HAZEL/GLYCERIN 1 PAD TOP PRN ×2 (06:32→10:26)
[2022-10-27] MEDS: LACTATED RINGERS 1,000 ML IV SCH (07:39)
[2022-10-27] MEDS: SODIUM CHLORIDE FLUSH 0.9% 10 ML SYRINGE IVP SCH (07:39)
[2022-10-27] MEDS: DOCUSATE SODIUM 100 MG CAPSULE PO SCH ×2 (10:23→21:55)
[2022-10-27] MEDS: HYDROCORTISONE 1% CREAM 28 GM TUBE PR PRN (10:25)
--- NOTE | 2022-10-27 12:26 | PROVIDER PROGRESS NOTE ---
Subjective - Prog Note Date Prog Note Date: 10/27/22 Prog Note Time: 12:00 - Subjective Pt reports feeling: Improved Subjective: Comfortable. Appropriate lochia. Ambulating. Voiding. Tolerating regular diet. well. Mood is good. Objective - Vital Signs/Intake & Output Reviewed Vital Signs: Yes Vital Signs: Vital Signs x48h Temp Pulse Resp BP Pulse Ox 10/27/22 12:00 98.1 F 70 18 113/57 L 97 10/27/22 07:42 97.7 F 72 16 103/60 97 10/27/22 04:49 97.7 F 82 18 105/43 L 97 Intake & Output: Intake & Output 10/24/22 10/25/22 10/26/22 10/27/22 23:59 23:59 23:59 23:59 Intake Total 480 3109.167 1000.000 Output Total 350 800 Balance 480 2759.167 200.000 - Objective General Appearance: positive: No acute distress Eyes Bilateral: positive: EOMI Respiratory: positive: No respiratory distress Abdomen: positive: Other (FF) Back: positive: Nml inspection Skin: positive: Color nml Extremities: positive: Non-tender Neurologic/Psychiatric: positive: Oriented x3 - Lab Results Fish Bones: 10/25/22 08:00 Assessment/Plan - Problem List (1) Vacuum extraction, delivered, current hospitalization Impression: 32yo s/p VAVD 10/26/22 following post dates IOL, PPD#1 doing well (2) Single live Impression: Baby girl rooming with mother, well (3) 39 weeks gestation of Impression: S/p , continue care. Anticipate discharge tomorrow
[2022-10-28] MEDS: IBUPROFEN 800 MG TABLET PO SCH ×2 (06:16→12:07)
--- NOTE | 2022-10-28 07:53 | Discharge Plan ---
Discharge Plan Problem Reviewed?: Yes Disposition: Home, Self Care Condition: Good Diet: Regular Activity Restrictions: Activity as Tolerated Shower Restrictions: No Driving Restrictions: No Weight Bearing: Full Weight Instruction Topics: Vaginal After, Depression , Additional Instructions or Follow Up instructions: 11/06/22 230p No Smoking: If you smoke, Please STOP! Call for help. Follow-up with: Breanna Ramsey ARNP [Provider Admit Priv/Credential] -
--- NOTE | 2022-10-28 07:59 | DISCHARGE SUMMARY ---
Discharge Summary Admit Date: 10/25/22 Discharge Date: 10/28/22 Discharging Provider: Jayla Valdes DO Code Status: Attempt Resuscitation Condition at Discharge: Good Discharge Disposition: 01 Home, Self Care Discharge Facility Name: [facility] - DIAGNOSES Admission Diagnoses: 32yo admitted 10/25 at 40.3w for IOL for post-dates/Cat 2 tracing - HPI History of Present Illness: 32yo at 40.3w by LMP consistent with 10w US admitted for IOL for post- dates/Cat 2 tracing - HOSPITAL COURSE Hospital Course: 32yo at 40.3w by LMP consistent with 10w US admitted for IOL for post- dates/Cat 2 tracing. She was given misoprostol for cervical ripening. Started on Pitocin. Received epidural. AROM, light meconium. Progressed to 10cm. Pushing well. FHR to 80s +3 repetitively and baby delivered via VAVD, see delivery note. Mother and baby girl doing well. Appropriate lochia. well. Mood is good. Feels ready for discharge PPD#2. care and depression, reviewed. All questions answered. - ALLERGIES Allergies/Adverse Reactions: Allergies Allergy/AdvReac Type Severity Reaction Status Date / Time No Known Drug Allergies Allergy Verified 04/01/19 14:30 - MEDICATIONS Home Medications: Ambulatory Orders Medication Instructions Recorded Confirmed Vitamin B Complex 1 each PO 04/01/19 - PHYSICAL EXAM AT DISCHARGE General Appearance: positive: No acute distress Eyes Bilateral: positive: EOMI Respiratory: positive: No respiratory distress Abdomen: positive: Non-tender Skin: positive: Color nml Extremities: positive: Non-tender Neurologic/Psychiatric: positive: Oriented x3 - LABS Result Diagrams: 10/25/22 08:00 - QUALITY (Female Hip Fx Only) Was patient sent home on osteoporosis medication?: No - FOLLOW UP Follow Up: Follow up 11/06/22 230p - TIME SPENT Time Spent in Discharge (Minutes): 25
[2022-10-28] MEDS: DOCUSATE SODIUM 100 MG CAPSULE PO SCH (09:03)
[2022-10-28] MEDS: ACETAMINOPHEN 500 MG TABLET PO SCH (09:03)
[2022-10-28 09:05] VITALS: BP 116/57; O2SAT 98
[2022-10-28] MEDS: HYDROCORTISONE 1% CREAM 28 GM TUBE PR PRN (12:07)
--- NOTE | 2022-10-28 15:50 | Labor Flowsheet ---
Labor Flowsheet Datetime Report Generated by CPN: 10/28/2022 15:50 Datetime: 10/28/2022 08:55 VITAL SIGNS NBP Sys/Kirsten/Mean (mmHg): 116 : 57 : 67 Pulse: 69 Datetime: 10/27/2022 21:33 SpO2 (%): 100 Datetime: 10/26/2022 21:19 MEDICATIONS Pitocin (milliunits): Increased to @ 999 Medication Comments: per provider Datetime: 10/26/2022 21:17 Stage of : Datetime: 10/26/2022 21:14 UTERINE ACTIVITY Monitor Mode: External Frequency (min): 4-6 Quality: Strong Duration (sec): 60-90 Pattern: Normal: <= 5 Contractions in 10 Minutes Resting Tone (Palpate): Relaxed Pitocin Checklist: At Least 1 Acceleration of 15 bpm x 15 Seconds in 30 Minutes or Adequate Variabi lity; No More than 5 Uterine Contractions in 10 Minutes for any 20 Minute Interval; Uterus Palpates S oft between Contractions ASSESSMENT A Monitor Mode: Telemetry FHR Baseline Rate : 135 Variability: Moderate 6-25 bpm Accelerations: 15X15 Decelerations: Late Actions for Decelerations: Other Category: Category II Datetime: 10/26/2022 21:11 Vacuum: On Datetime: 10/26/2022 20:59 LaborFlag: Labor Datetime: 10/26/2022 20:54 Communication Comments: Charge nurse notified MECHANIC to call OR team in per provider Datetime: 10/26/2022 20:52 COMMUNICATION Communication: Call/Page Placed to Provider Provider Notified (Name): DrHill Shanks and J. Junaiddell Datetime: 10/26/2022 20:44 Contraction Comments: long period of resting tone noted Datetime: 10/26/2022 20:29 Comments: unable to determine FHR baseline, indeterminate of type of decels, audible decrease in FH R noted, provider aware Datetime: 10/26/2022 20:14 Patient Care Comments: maternal pulse verified manually Datetime: 10/26/2022 20:03 Nausea/Vomiting: Present Datetime: 10/26/2022 19:32 STAGE 2 Pushing: Coached on Pushing Pushing Position: Pushing with Contractions Datetime: 10/26/2022 19:24 I/O Interventions: Arnett Discontinued Datetime: 10/26/2022 19:20 Provider Reviewed Strip: Yes Strip Reviewed by: Dr. Cayabyab Datetime: 10/26/2022 19:00 FHR Baseline Changes: No Baseline Change Datetime: 10/26/2022 18:54 VAGINAL EXAM Dilatation (cm): 10.0 Effacement (%): 100 Station: 1 Exam by: Cayabyab Datetime: 10/26/2022 17:20 Patient Position/Activity: Left Lateral Datetime: 10/26/2022 15:17 Temperature (C): 36.9 Datetime: 10/26/2022 15:08 Membrane Status: Ruptured Membranes Rupture Method: Artificial Amniotic Fluid Color: Light Meconium Amniotic Fluid Amount: Large Datetime: 10/26/2022 13:40 Monitor Interventions for UA: [place] Adjusted Monitor Interventions for FHR: Ultrasound Adjusted Datetime: 10/26/2022 10:55 Magnesium/Antihypertensives: Ephedrine IV (mg) @ 10mg Datetime: 10/26/2022 10:34 Anesthesia Interventions Other: Other Anesthesia Comments: IV bolus 500ml given Datetime: 10/26/2022 10:28 Epidural Procedure: Loading Dose Datetime: 10/26/2022 10:01 PROCEDURE TIME OUT Procedure Type: epidural Procedure Verify: Correct Patient Identity; Correct Side and Site are Marked; Accurate Procedure Co nsent Form; Agreement on Procedure to be Done; Correct Patient Position; Addressed Need to Administer Antibiotics or Fluids for Irrigation; Safety Precautions Based on Patient History or Medication Use ANESTHESIA Epidural Positioning: Sitting Datetime: 10/26/2022 09:06 Hygiene: Complete Bath Datetime: 10/26/2022 07:50 Membranes Ruptured Date/Time: 10/26/2022 15:08 Amniotic Fluid Odor: Normal Datetime: 10/26/2022 07:00 PATIENT CARE Oxygen Method: Room Air Datetime: 10/26/2022 02:55 Vaginal Bleeding: None Cervix, Consistency: Moderate Cervix, Position: Midposition Datetime: 10/26/2022 02:51 Respirations: 18 Datetime: 10/26/2022 01:41 Pain Coping: Breathing Through Contractions; Requesting Pain Medication or Epidural Pain Assessment Comments: Nitrous initiated Comfort Measures: Breathing/Relaxation Datetime: 10/25/2022 23:59 Vital Sign Comments: BP low on right arm, new cuff obtained , changed positions and new arm, BP imp roved, pt assymptomatic Datetime: 10/25/2022 22:40 Cervical Ripening Agents: Cytotec @ Datetime: 10/25/2022 20:08 PAIN Pain Scale: 5 Pain Presence: Intermittent Pain Type: Contraction Pain Location: Abdomen Pain Relief Measures: Comfort Measures MATERNAL ASSESSMENT Level of Consciousness: Alert DTR's/Clonus: DTRs 2+; No Clonus Headache: Denies Breath Sounds, Left: Clear and Equal Breath Sounds, Right: Clear and Equal RUQ Epigastric Pain: Denies TEACHING Instructional Method: Verbal; Verbalized Understanding Plan of Care: Plan of Care Discussed; Labor Unit Routine: Burke to Room; Call Leger; Bed; Unit Personnel; Monitoring; Safety/Fall Risk Pr evention; Diet/Nutrition Services; Bathroom Privileges Labor/Induction: Labor Stages Datetime: 10/25/2022 06:05 Vaginal Exam Comments: SVE while supine, no cord palp
== END 2022-10-28 13:00 | disposition home or self-care (01) | DRG 807 ==
LOC: WFO 05:01 → FBP 05:02 → WFO 07:25 → FBP 07:26
PROVIDERS: ADMIT Obstetrics & Gynecology; ATTEND Obstetrics & Gynecology
PROC: 10D07Z6 Extraction of Products of Conception, Vacuum, Via Natural or Artificial Opening (ICD-10-PCS; principal; 2022-10-26)
PROC: 0KQM0ZZ Repair Perineum Muscle, Open Approach (ICD-10-PCS; 2022-10-26)
PROC: 10907ZC Drainage of Amniotic Fluid, Therapeutic from Products of Conception, Via Natural or Artificial Opening (ICD-10-PCS; 2022-10-26)
DX: O48.0 Post-term pregnancy (principal); Z37.0 Single live birth; Z3A.40 40 weeks gestation of pregnancy; O77.0 Labor and delivery complicated by meconium in amniotic fluid; O76 Abnormality in fetal heart rate and rhythm complicating labor and delivery; O99.214 Obesity complicating childbirth; O70.1 Second degree perineal laceration during delivery
CPT/HCPCS: 36415; 84112; 85025; 86850; 86900; 86901; 99215; A9270; J7120